=== PATIENT | female | born 1935 | race Two or more races ===

== ENCOUNTER 2024-12-13 19:07 | Inpatient (IN) | payer OTHER ==
[~2024-12-13] VITALS: Ht 71.1 cm; Wt 39.5 kg
[2024-12-13] MEDS ORDERED: 0.9 % SODIUM CHLORIDE 1,000 ML IV STA (22:21)
[2024-12-13 23:19] LABS: BASO % 0.5 % (0.1-1.2); EOS # 0.19 (0.04-0.54); EOS % 2.4 % (0.7-7.0); LYMPH # 2.00 (1.18-3.74); LYMPH % 25.4 % (19.3-53.1); MEAN PLATELET VOLUME 9.00 fl (9.4-12.4); MONO # 0.47 (0.24-0.82); MONO % 6.0 % (4.7-12.5); NEUT # 5.14 (1.56-6.13); NEUT % 65.3 % (34.0-71.1); RED CELL DISTRIBUTION WIDTH 12.9 % (11.6-14.4)
[2024-12-13 23:40] LABS: INR 1.01
[2024-12-13 23:51] LABS: ERYTHROCYTE SEDIMENTATION RATE 49 mm/hr (0-30)
[2024-12-14 01:09] LABS: ALT/SGPT 18.0 U/L (12-78); AST/SGOT 25.0 U/L (15-37); BILIRUBIN TOTAL 0.29 mg/dL (0.3-1.2); BUN CREA RATIO 26.0 (7.0-25.0); CREATININE SERUM 0.61 mg/dL (0.55-1.02); GFR 92.56; GLOBULINA 3.8 G/DL (2.4-3.5); GLUCOSE FASTING 97.0 mg/dL (65-100); OSMOLALITY SERUM 292.0 MOSM/KG (275-295)
[2024-12-14 03:13] LABS: URINE APPEARANCE Turbid; URINE BILIRRUBIN Negative (NEGATIVE); URINE BLOOD NHT; URINE COLOR Yellow; URINE GLUCOSE Negative (NEGATIVE); URINE KETONE Trace (NEGATIVE); URINE LEUKOCYTE Large; URINE NITRATE Negative; URINE PROTEIN Trace (NEGATIVE); URINE UROBILINOGEN 1.0 E.U./dl
[2024-12-14 03:16] LABS: URINE CAST 3.84 uL (0.0-1.40); URINE EPITHELIAL CELLS 4.4 uL (0.0-38.8); URINE RBC 6.7 uL (0.0-20.8); URINE WBC 4519.0 uL (0.0-23.2)
[2024-12-14 03:45] LABS: URINE BACTERIA > 9821.5 uL (0.0-1933)
[2024-12-14] MEDS ORDERED: CIPROFLOXACIN IN 5 % DEXTROSE 400 MG/200 ML PIGGYBAG IV STA (03:47)
[2024-12-14] MEDS ORDERED: MEROPENEM 500 MG/VIAL VIAL IV SCH (17:54)
[2024-12-14] MEDS ORDERED: MEMANTINE HCL 10 MG TABLET PO SCH (17:55)
[2024-12-14] MEDS ORDERED: ACETAMINOPHEN 500 MG GEL..CAP PO PRN (18:00)
[2024-12-14] MEDS ORDERED: ONDANSETRON HCL 4 MG in 0.9 % SODIUM CHLORIDE 50 ML IV PRN (18:00)
[2024-12-14] MEDS ORDERED: 0.9 % SODIUM CHLORIDE 1,000 ML IV SCH (18:00)
[2024-12-14 19:43] LABS: INR 1.05
[2024-12-14 19:44] VITALS: BP 130/70; BP 132/78; O2SAT 98
[2024-12-15] MEDS ORDERED: LEVOTHYROXINE SODIUM 100 MCG TABLET PO SCH (06:00)
[2024-12-15] MEDS ORDERED: FAMOTIDINE/PF 20 MG in 0.9 % SODIUM CHLORIDE 8 ML IV PUSH SCH (09:00)
[2024-12-15] MEDS ORDERED: LOSARTAN POTASSIUM 25 MG TABLET PO SCH (09:00)
[2024-12-15 09:41] VITALS: BP 135/73; O2SAT 99
[2024-12-15 17:32] VITALS: BP 127/82
[2024-12-16 02:00] VITALS: BP 102/58; O2SAT 97
[2024-12-16 08:50] VITALS: BP 139/77; O2SAT 98
[2024-12-16] MEDS ORDERED: levoFLOXacin IN DEXTROSE 5 % 5 MG/ML PIGGYBAG IV SCH (09:00)
[2024-12-16 18:34] VITALS: BP 148/88
[2024-12-17 03:06] VITALS: BP 93/59; O2SAT 95
[2024-12-17 09:05] VITALS: BP 143/83; O2SAT 97
== END 2024-12-17 16:04 | disposition home or self-care (01) | DRG 690 ==
LOC: ER 19:07 → SEC-K 12-14 18:05 → MEDI 12-14 18:05 → SEC-K 12-15 05:05 → MEDI 12-15 10:37
PROVIDERS: General Practice; ADMIT Internal Medicine; ATTEND Internal Medicine
DX: N39.0 Urinary tract infection, site not specified (principal); Z16.24 Resistance to multiple antibiotics; Z16.23 Resistance to quinolones and fluoroquinolones; G30.9 Alzheimer's disease, unspecified; F02.80 Dementia in other diseases classified elsewhere, unspecified severity, without behavioral disturbance, psychotic disturbance, mood disturbance, and anxiety; E86.0 Dehydration; I10 Essential (primary) hypertension; E03.9 Hypothyroidism, unspecified; L89.629 Pressure ulcer of left heel, unspecified stage; L89.619 Pressure ulcer of right heel, unspecified stage; B96.20 Unspecified Escherichia coli [E. coli] as the cause of diseases classified elsewhere; J44.9 Chronic obstructive pulmonary disease, unspecified